=== PATIENT | male | born 1955 | race Caucasian/White ===

== ENCOUNTER 2020-09-13 10:40 | Observation (INO) | payer BC, OTHER ==
[~2020-09-13] VITALS: Ht 185 cm; Wt 88.0 kg
[~2020-09-13 10:40] MED LIST: ESOM40CA52 PO; LISI20TA26 PO; OXYC1TAB87 PO; SIMV40TA25 PO
[2020-09-13] MEDS ORDERED: ASPIRIN 81 MG CHEW (CHILDREN'S ASA) ONE (10:52)
[2020-09-13] MEDS ORDERED: NITROGLYCERIN 0.4 MG SL TABS BTL 25'S SL ONE (10:53)
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
[2020-09-13] MEDS ORDERED: NITROGLYCERIN 0.4 MG SL TABS BTL 25'S SL PRN (11:00)
[2020-09-13] MEDS ORDERED: ASPIRIN 81 MG CHEW (CHILDREN'S ASA) PO ONE (11:00)
--- NOTE | 2020-09-13 11:26 | Diagnostic Imaging Report ---
INDICATION: Chest pain COMPARISON: 10/13/2015. FINDINGS: Single frontal view of the chest demonstrates normal heart size and pulmonary vascularity. The lungs are well aerated and clear. No large pleural effusion or pneumothorax is seen. The visualized osseous structures show no acute abnormalities. IMPRESSION: 1. No acute cardiopulmonary process. Dictated by: Dictated on workstation # [id number]
[2020-09-13 11:27] LABS: BASOPHILS % (AUTO) 1 % (0-10); EOSINOPHILS # (AUTO) 0.1 10^3/uL (0.0-0.3); EOSINOPHILS % (AUTO) 1 % (0-10); HEMATOCRIT 38 % (40-54); LYMPHOCYTES # (AUTO) 1.6 10^3/uL (1.0-4.0); LYMPHOCYTES % (AUTO) 30 % (12-44); MEAN CORPUSCULAR HEMOGLOBIN 32 pg (25-34); MEAN CORPUSCULAR HGB CONC 34 g/dL (32-36); MEAN CORPUSCULAR VOLUME 96 fL (80-99); MEAN PLATELET VOLUME 9.9 fL (9.0-12.2); MONOCYTES # (AUTO) 0.7 10^3/uL (0.0-1.0); MONOCYTES % (AUTO) 13 % (0-12); NEUTROPHILS # (AUTO) 2.8 10^3/uL (1.8-7.8); NEUTROPHILS % (AUTO) 55 % (42-75); PLATELET COUNT 218 10^3/uL (130-400); WHITE BLOOD COUNT 5.1 10^3/uL (4.3-11.0)
[2020-09-13 11:29] LABS: ALBUMIN 4.2 GM/DL (3.2-4.5); CHLORIDE 105 MMOL/L (98-107); POTASSIUM 4.2 MMOL/L (3.6-5.0); SODIUM 140 MMOL/L (135-145)
[2020-09-13 11:30] LABS: CALCIUM 9.2 MG/DL (8.5-10.1)
[2020-09-13 11:31] LABS: GLUCOSE 100 MG/DL (70-105); TOTAL PROTEIN 7.3 GM/DL (6.4-8.2)
[2020-09-13 11:33] LABS: BILIRUBIN,TOTAL 0.6 MG/DL (0.1-1.0); CARBON DIOXIDE 22 MMOL/L (21-32)
[2020-09-13 11:35] LABS: ALKALINE PHOSPHATASE 45 U/L (40-136); CREATININE SERUM 1.06 MG/DL (0.60-1.30); GFR ESTIMATED > 60
[2020-09-13 11:36] LABS: BUN/CREATININE RATIO 13
[2020-09-13 11:38] LABS: ALANINE AMINOTRANSFERASE 26 U/L (0-55); MAGNESIUM 1.9 MG/DL (1.6-2.4)
[2020-09-13 11:40] LABS: BILIRUBIN,URINE NEGATIVE (NEGATIVE); CLARITY,URINE CLEAR; COLOR,URINE YELLOW; GLUCOSE, URINE (UA) NEGATIVE (NEGATIVE); KETONES,URINE NEGATIVE (NEGATIVE); LEUKOCYTE ESTERASE ,URINE NEGATIVE (NEGATIVE); NITRITE,URINE NEGATIVE (NEGATIVE); PH,URINE 5.5 (5-9); PROTEIN,URINE NEGATIVE (NEGATIVE)
[2020-09-13 11:42] LABS: FIBRIN DEGRADATION PRODUCTS <= 0.27 UG/ML (0.00-0.49); PARTIAL THROMBOPLASTIN TIME 29 SEC (24-35); PROTHROMBIN TIME PATIENT 13.7 SEC (12.2-14.7)
[2020-09-13] MEDS ORDERED: IOHEXOL 350 MG/ML 100 ML (OMNIPAQUE 350) VIAL IV ONE (11:45)
[2020-09-13] MEDS ORDERED: CATHETER FLUSH 10 ML SYR IV PRN ×2 (11:45→13:45)
[2020-09-13] MEDS ORDERED: NS IV 1000 ML 1,000 ML IV SCH (11:45)
[2020-09-13] MEDS ORDERED: NS 100 ML (IVPB) BAG IV ONE (11:45)
[2020-09-13] MEDS ORDERED: HOLD METFORMIN - RECEIVED CONTRAST 20 ML VIAL IV SCH (11:45)
[2020-09-13 11:53] LABS: AMPHETAMINE SCREEN, URINE NEGATIVE (NEGATIVE); BARBITURATE SCREEN URINE NEGATIVE (NEGATIVE); BENZODIAZEPINES SCREEN URINE NEGATIVE (NEGATIVE); CANNABINOID SCREEN, URINE NEGATIVE (NEGATIVE); COCAINE SCREEN URINE NEGATIVE (NEGATIVE); METHADONE STAT NEGATIVE (NEGATIVE); METHAMPHETAMINE SCREEN URINE S NEGATIVE (NEGATIVE); OPIATE SCREEN URINE NEGATIVE (NEGATIVE); OXYCODONE STAT NEGATIVE (NEGATIVE); PROPOXYPHENE STAT NEGATIVE (NEGATIVE); TRICYCLIC ANTIDEPRESSANTS SCRE NEGATIVE (NEGATIVE)
[2020-09-13 12:08] LABS: BACTERIA,URINE NEGATIVE /HPF; SQUAMOUS EPITHELIAL CELL,UR 0-2 /HPF; WBC,URINE RARE /HPF
--- NOTE | 2020-09-13 12:20 | Diagnostic Imaging Report ---
PROCEDURE: CT angiography of the head and CT angiography of the neck with and without contrast. TECHNIQUE: Contiguous noncontrast images were obtained from the skull base through the vertex. After intravenous contrast administration, helical CT angiography of the neck was performed. Source data was reformatted into 3D MIP projections. Delayed post contrast acquisition was also obtained. Auto Exposure Controls were utilized during the CT exam to meet ALARA standards for radiation dose reduction. INDICATION: Right-sided numbness. Concern for stroke. Comparison: None. FINDINGS: CTA Neck: The visualized portions of the aortic arch demonstrate no evidence of aneurysm or dissection. There is conventional branching pattern of the great vessels of the aorta. The brachiocephalic artery is normal in course and caliber. The right and left common carotid origins are unremarkable. The origin of the left subclavian artery is patent. The common carotid arteries and internal carotid arteries demonstrate a mildly tortuous course. There is a small amount of atherosclerotic plaque in the bilateral carotid bulbs and proximal internal carotid arteries without flow-limiting stenosis. No evidence of dissection in the carotid systems. The external carotid arteries are patent and unremarkable. The vertebral arteries are codominant. The origin of the right vertebral artery is seen and is unremarkable. The origin of the left vertebral artery is seen and is unremarkable. There is no focal stenosis seen within the neck. There is no dissection. The vertebral arteries are well visualized to up to the level of the basilar artery. The osseous structures of the cervical spine are unremarkable. Included views through the lung apices demonstrate no focal consolidation. CTA brain: The intracranial portions of the bilateral ICA have a normal appearance without stenosis or aneurysm. No stenosis is seen in the bilateral anterior, middle, and posterior cerebral arteries. No evidence of aneurysm the [place]. In the posterior circulation, both of the vertebral arteries demonstrate normal opacification. The vertebral arteries are codominant. Both the right and left PICA arteries are identified. There is redemonstration of the basilar artery. No evidence of aneurysm or focal stenosis in the basilar artery. The terminal branch vessels including the superior cerebellar arteries unremarkable. CT head: No large acute territorial ischemia, mass, or hemorrhage. Scattered decreased attenuation is seen in the periventricular and subcortical white matter. No midline shift or mass effect. The ventricles, cortical sulci, and basilar cisterns are patent and unremarkable. The calvarium is intact. Small mucous retention cysts are seen in the bilateral maxillary sinuses. The mastoid air cells are clear. IMPRESSION: 1. No stenosis or aneurysm in the [place]. 2. No stenosis or dissection the bilateral carotid and vertebral arteries. 3. No large acute territorial ischemia, mass, or hemorrhage. 4. Scattered areas of age-indeterminate microvascular disease in the periventricular and subcortical white matter. If indicated consider further evaluation with MRI brain. 5. Incidentally noted fenestrated basilar artery. Dictated by: Dictated on workstation # [id number]
[2020-09-13] MEDS ORDERED: ACETAMINOPHEN 650 MG SUPP (TYLENOL) PR PRN (13:45)
[2020-09-13] MEDS ORDERED: ACETAMINOPHEN 325 MG TABLET PO PRN ×3 (13:45→18:00)
[2020-09-13] MEDS ORDERED: APAP 325 MG/10.15 ML LIQ (TYLENOL) UDC NG PRN (13:45)
[2020-09-13 13:48] VITALS: BP 152/80
--- NOTE | 2020-09-13 14:30 | Occ Therapy Progress Note ---
Therapy Progress Note OT order received, chart reviewed. Will assess pt. in a.m. after MRI and continued testing to rule out final diagnosis, when pt. rested from full day in ER and when medically stable. Thank you for this referral. [id number] ELA BRITO OT Sep 13, 2020 14:30
[2020-09-13] MEDS: CATHETER FLUSH 10 ML SYR IV SCH ×2 (14:42→20:16)
[2020-09-13] MEDS: ENOXAPARIN 40 MG/0.4 ML (LOVENOX) SYR SC SCH (14:42)
--- NOTE | 2020-09-13 14:51 | Physical Therapy Progress Note ---
Therapy Progress Note Order for evaluation received, chart reviewed. Patient came from ER this morning, his MRI is scheduled for in the morning. Will hold for now and see after continued testing. MARIZA GARCIA PT Sep 13, 2020 14:51
[2020-09-13] MEDS ORDERED: IBUP-2473 PO (15:17)
[2020-09-13] MEDS ORDERED: LISI40TA9 PO (15:17)
[2020-09-13 15:40] VITALS: BP 123/72
[2020-09-13] MEDS ORDERED: ONDANSETRON 4 MG (ZOFRAN) ORAL DISSOLVE TAB PO PRN (18:00)
[2020-09-13] MEDS ORDERED: MELATONIN 3 MG TABLET PO PRN (18:00)
[2020-09-13] MEDS ORDERED: polyethylene glycoL POWDER 17 GM (MIRALAX) PACK PO PRN (18:00)
[2020-09-13] MEDS ORDERED: ANTACID SUSP 30 ML UDC (MYLANTA) PO PRN (18:00)
[2020-09-13] MEDS ORDERED: ONDANSETRON 4 MG/2 ML (SDV) Z0FRAN IV PRN (18:00)
[2020-09-13] MEDS ORDERED: MILK OF MAGNESIA 400 MG/5 ML 30 ML UDC PO PRN (18:00)
[2020-09-13] MEDS ORDERED: diphenhydrAMINE 25 MG TAB (BENADRYL) PO PRN (18:00)
[2020-09-13 19:48] VITALS: BP 123/72
[2020-09-13] MEDS: DOCUSATE SODIUM 100 MG (COLACE) CAP PO SCH (20:15)
[2020-09-13] MEDS: SENNOSIDES 8.6 MG (SENOKOT) TAB PO SCH (20:15)
[2020-09-13 23:48] VITALS: BP 120/66
[2020-09-14 04:18] VITALS: BP 122/76
[2020-09-14 05:20] LABS: BASOPHILS % (AUTO) 1 % (0-10); EOSINOPHILS # (AUTO) 0.1 10^3/uL (0.0-0.3); EOSINOPHILS % (AUTO) 2 % (0-10); HEMATOCRIT 37 % (40-54); HEMOGLOBIN 12.3 g/dL (13.3-17.7); LYMPHOCYTES # (AUTO) 1.3 10^3/uL (1.0-4.0); LYMPHOCYTES % (AUTO) 24 % (12-44); MEAN CORPUSCULAR HEMOGLOBIN 32 pg (25-34); MEAN CORPUSCULAR HGB CONC 33 g/dL (32-36); MEAN CORPUSCULAR VOLUME 96 fL (80-99); MONOCYTES # (AUTO) 0.6 10^3/uL (0.0-1.0); MONOCYTES % (AUTO) 10 % (0-12); NEUTROPHILS # (AUTO) 3.4 10^3/uL (1.8-7.8); NEUTROPHILS % (AUTO) 63 % (42-75); PLATELET COUNT 201 10^3/uL (130-400); WHITE BLOOD COUNT 5.4 10^3/uL (4.3-11.0)
[2020-09-14 05:39] LABS: CHLORIDE 106 MMOL/L (98-107); POTASSIUM 3.9 MMOL/L (3.6-5.0); SODIUM 138 MMOL/L (135-145)
[2020-09-14 05:40] LABS: CALCIUM 8.9 MG/DL (8.5-10.1)
[2020-09-14 05:41] LABS: GLUCOSE 106 MG/DL (70-105); TRIGLYCERIDES 102 MG/DL (<150); VLDL CHOLESTEROL 20 MG/DL (5-40)
[2020-09-14 05:42] LABS: CARBON DIOXIDE 21 MMOL/L (21-32)
[2020-09-14 05:44] LABS: CREATININE SERUM 0.86 MG/DL (0.60-1.30); GFR ESTIMATED > 60
[2020-09-14 05:46] LABS: BUN/CREATININE RATIO 15; CHOLESTEROL 167 MG/DL (< 200)
[2020-09-14 05:47] LABS: HDL CHOLESTEROL 57 MG/DL (40-60)
[2020-09-14] MEDS: CATHETER FLUSH 10 ML SYR IV SCH ×3 (06:10→19:58)
--- NOTE | 2020-09-14 08:15 | Consultation-Cardiology ---
HPI-Cardiology Cardiology Consultation: Date of Consultation 09/14/20 Time Seen by a Provider: 08:10 Date of Admission 09-13-20 Attending Physician Lynn Urbina MD Admitting Physician No,Local Physician Consulting Physician Tammie Domingo MD HPI: Chief Complaint: TIA vs CVA Mr. Weldon is a 65 yr old male admitted to 508 from the ED. He reports he was mowing his lawn yesterday when he developed right sided facial numbness, arm and leg numbness along with blurred vision. He reports the blurred vision lasted for approx 15 minutes. He reports feeling weak and dizzy. The facial numbness has resolved and the right leg numbness has resolved. He continues to c/o right arm/hand numbness. He states he was seen by Dr. Otto at [facility] approx 2 months ago and underwent cardiac cath which he states he did not have any interventions. He states he had a carotid u/s and echocardiogram as well. He reports he was told he has a leaky aortic valve. He reports he feels he has undiagnosed sleep apnea. He reports poor rest at night. He states he wakes up nearly every night with SOB and palpitations which gradually resolve. He reports chronic daytime fatigue. He has not had sleep studies. He denies any n/v/d. He reports he was advised to take an ASA, but he has not been taking it. He denies any LE swelling. He does not report any CP or SOB during yesterdays event. Review of Systems-Cardiology Review of Systems Constitutional: As described under HPI; No chills, No fever Eyes: As described under HPI Ears/Nose/Throat: No epistaxis, No recent hearing loss Respiratory: As described under HPI Cardiovascular: As described under HPI Gastrointestinal: No constipation, No diarrhea, No nausea, No vomiting Genitourinary: No dysuria, No hematuria Musculoskeletal: no symptoms reported Skin: No rash on exposed areas, No ulcerations on exposed areas Psychiatric/Neurological: As described under HPI; No anxiety, No depression, No seizure, No syncope Hematologic: No bleeding abnormalities All Other Systems Reviewed Negative Unless Noted: Yes IVW-Qhafxg-Uuasjo Hx Patient Social History Smoking Status: Never a Smoker Have you traveled recently?: No Alcohol Use?: Yes Pt feels they are or have been: No Immunizations Up To Date Tetanus Booster (TDap): Less than 5yrs Past Medical History PMH As described under Assessment. Family Medical History Family Medical History: He reports his mother had CAD with CABG in her 60's and his father had CAD with CABG in his 70's. He reports a brother who has a h/o TIA. Family History: 19 FATHER Dementia Cardiovascular disease Hypertension Asthma Respiratory disorder Alcoholism 19 MOTHER Diabetes mellitus Dementia Cardiovascular disease Hypertension G8 BROTHER Hypertension Drug abuse Allergies and Home Medications Allergies Coded Allergies: No Known Drug Allergies (Unverified , 10/13/15) Home Medications Aspirin 325 Mg Tablet., 325 MG PO DAILY Prescribed by: LYNN URBINA on 09/14/20 1601 Atorvastatin Calcium 80 Mg Tablet, 80 MG PO HS Prescribed by: LYNN URBINA on 09/14/20 1601 Esomeprazole Magnesium 40 Mg Capsule.dr, 40 MG PO DAILY, (Reported) Last Action: Reviewed Ibuprofen 200 Mg Tablet, 400-600 MG PO Q8H PRN for PAIN-MILD (1-4), (Reported) Last Action: Reviewed Lisinopril 40 Mg Tablet, 40 MG PO DAILY, (Reported) Last Action: Reviewed Patient Home Medication List Home Medication List Reviewed: Yes Physical Exam-Cardiology Physical Exam Vital Signs/I&O Capillary Refill : Less Than 3 Seconds Constitutional: AAO x 3, well-developed, well-nourished HEENT: PERRL, hearing is well preserved, oral hygience is good Neck: carotid bruit (bruit vs transmitted murmur) Respiratory: No accessory muscle use, No respiratory distress; chest expansion is symmetric, chest is bilaterally symmetric, lungs clear to auscultation Cardiovascular: regular rate-rhythm; No JVD; S1 and S2, systolic murmur Gastrointestinal: No tender; soft, round, audible bowel sounds Extremities: no lower extremity edema bilateral Neurologic/Psychiatric: grossly intact (moves all extremities) Skin: No rash on exposed areas, No ulcerations on exposed areas Data Review Labs Radiology NAME: JAMES WELDON MED REC#: [id number] PT STATUS: REG ER : 1955 PHYSICIAN: YUAN GILL MD ADMIT DATE: 09/13/20/ER Signed Date of Exam:09/13/20 CT ANGIO HEAD/NECK PROCEDURE: CT angiography of the head and CT angiography of the neck with and without contrast. TECHNIQUE: Contiguous noncontrast images were obtained from the skull base through the vertex. After intravenous contrast administration, helical CT angiography of the neck was performed. Source data was reformatted into 3D MIP projections. Delayed post contrast acquisition was also obtained. Auto Exposure Controls were utilized during the CT exam to meet ALARA standards for radiation dose reduction. INDICATION: Right-sided numbness. Concern for stroke. Comparison: None. FINDINGS: CTA Neck: The visualized portions of the aortic arch demonstrate no evidence of aneurysm or dissection. There is conventional branching pattern of the great vessels of the aorta. The brachiocephalic artery is normal in course and caliber. The right and left common carotid origins are unremarkable. The origin of the left subclavian artery is patent. The common carotid arteries and internal carotid arteries demonstrate a mildly tortuous course. There is a small amount of atherosclerotic plaque in the bilateral carotid bulbs and proximal internal carotid arteries without flow-limiting stenosis. No evidence of dissection in the carotid systems. The external carotid arteries are patent and unremarkable. The vertebral arteries are codominant. The origin of the right vertebral artery is seen and is unremarkable. The origin of the left vertebral artery is seen and is unremarkable. There is no focal stenosis seen within the neck. There is no dissection. The vertebral arteries are well visualized to up to the level of the basilar artery. The osseous structures of the cervical spine are unremarkable. Included views through the lung apices demonstrate no focal consolidation. CTA brain: The intracranial portions of the bilateral ICA have a normal appearance without stenosis or aneurysm. No stenosis is seen in the bilateral anterior, middle, and posterior cerebral arteries. No evidence of aneurysm the [place]. In the posterior circulation, both of the vertebral arteries demonstrate normal opacification. The vertebral arteries are codominant. Both the right and left PICA arteries are identified. There is redemonstration of the basilar artery. No evidence of aneurysm or focal stenosis in the basilar artery. The terminal branch vessels including the superior cerebellar arteries unremarkable. CT head: No large acute territorial ischemia, mass, or hemorrhage. Scattered decreased attenuation is seen in the periventricular and subcortical white matter. No midline shift or mass effect. The ventricles, cortical sulci, and basilar cisterns are patent and unremarkable. The calvarium is intact. Small mucous retention cysts are seen in the bilateral maxillary sinuses. The mastoid air cells are clear. IMPRESSION: 1. No stenosis or aneurysm in the [place]. 2. No stenosis or dissection the bilateral carotid and vertebral arteries. 3. No large acute territorial ischemia, mass, or hemorrhage. 4. Scattered areas of age-indeterminate microvascular disease in the periventricular and subcortical white matter. If indicated consider further evaluation with MRI brain. 5. Incidentally noted fenestrated basilar artery. Dictated by: Dictated on workstation # [id number] Dict: 09/13/20 1210 Trans: 09/13/20 1224 [facility] [id number] Interpreted by: CASSIE VALLEJO DO Electronically signed by: CASSIE VALLEJO DO 09/13/20 1224 ECG Impression ECG Initial ECG Rhythm: Normal Sinus A/P-Cardiology Assessment/Admission Diagnosis TIA vs CVA (transient right facial, arm, leg numbness) Reports recent cardiac cath in June at [facility] by Dr. Otto which her reports no coronary intervention Reports "aortic valve leakage" per echocardiogram at [facility] in June [address] Otto Palpitations of undetermined etiology HTN HLD Heavy ETOH usage (20-30 beers/night) Suspected sleep apnea Family h/o CAD (mother and father) Discussion and Recomendations TIA vs CVA - managment per medical services - MRI later today Request records from [facility] regarding recent cardiac work up Suspected sleep apnea - advised out pt sleep studies Palpitations of undetermined etiology - keep on tele - if no arrhythmia seen advise out pt Holter vs ILR (at this time he is not agreeable to either) Monitor lab and replace electrolytes as indicated Heavy ETOH abuse - monitor for DT's - management per medical services Continue current medication regimen Further recs will be based on his hospital course We would like to thank medical services for this consult Clinical Quality Measures Stroke: Date of last known well: Sep 13, 2020 Time of last known well: 09:15 Symptoms onset unknown: No AURORA MELTON Sep 14, 2020 08:15
[2020-09-14 08:31] VITALS: BP 134/83
[2020-09-14] MEDS: DOCUSATE SODIUM 100 MG (COLACE) CAP PO SCH ×2 (08:35→20:05)
[2020-09-14] MEDS: ASPIRIN E.C. 325 MG (ECOTRIN) TABLET PO SCH (08:35)
[2020-09-14] MEDS: SENNOSIDES 8.6 MG (SENOKOT) TAB PO SCH ×2 (08:35→20:05)
[2020-09-14] MEDS ORDERED: ASPIRIN 325 MG (5 GR) TABLET PO SCH (09:00)
[2020-09-14] MEDS ORDERED: ASPIRIN 300 MG (5 GR) SUPPOSITORY PR SCH (09:00)
--- NOTE | 2020-09-14 10:01 | Physical Therapy Progress Note ---
Therapy Progress Note Patient is up independent without difficulty. Spouse present. Both voice they do not have safety concerns. No PT indicated. 1 visit ([phone]) BEAU DRUMMOND PT Sep 14, 2020 10:01
--- NOTE | 2020-09-14 11:49 | Occ Therapy Progress Note ---
Therapy Progress Note Reviewed pt chart again after initial evaluation sent. Spoke with PT this date. Pt up in room independently. Pt. independently completing self care in room with spouse present. Screen complete for functional ADL skills assessment. No OT indicated at this time. OT will be happy to re-assess if pt's needs change. Thank you for this referral. [id number] ELA BRITO OT Sep 14, 2020 11:49
[2020-09-14 12:58] VITALS: BP 126/84
--- NOTE | 2020-09-14 13:41 | Speech Therapy Progress Note ---
Therapy Progress Note ST orders received. Patient screened this afternoon. Speech/cognitive are within normal limits. Patient does not require further speech services at this time. INES JO Sep 14, 2020 13:41
[2020-09-14] MEDS: ENOXAPARIN 40 MG/0.4 ML (LOVENOX) SYR SC SCH (14:00)
--- NOTE | 2020-09-14 14:08 | Diagnostic Imaging Report ---
PROCEDURE: MR imaging of the brain without contrast. TECHNIQUE: Multiplanar, multisequence MR imaging of the brain was performed without contrast. INDICATION: Right-sided numbness. Concern for stroke or TIA. COMPARISON: CTA head and neck on 09/13/2020. FINDINGS: A small focus of acute/subacute ischemia is seen in the lateral aspect of the left thalamus. No evidence of hemorrhage or mass. Focal and confluent T2 hyperintense signal is seen in the periventricular and subcortical white matter. The ventricles, cortical sulci, and basilar cisterns are symmetric and unremarkable. The sellar and suprasellar regions have a normal appearance. The brainstem and posterior fossa are unremarkable. Small amount of retained secretions are seen in the bilateral maxillary sinuses and left sphenoid sinus. The mastoid air cells demonstrate normal signal characteristics. The globes and orbits are symmetric and unremarkable. The scalp and calvarium have a normal appearance. IMPRESSION: 1. Small focus of acute/subacute ischemia involving the lateral aspect of the left thalamus. No associated hemorrhage or mass effect. 2. Chronic microvascular disease throughout the periventricular and subcortical white matter. Dictated by: Dictated on workstation # [id number]
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
[2020-09-14] MEDS ORDERED: ATOR80TA76 PO (16:01)
[2020-09-14] MEDS ORDERED: ASPI325T32 PO (16:01)
--- NOTE | 2020-09-14 16:17 | Discharge Summary ---
Discharge Summary Hospital Course Was the Problem List Reviewed?: Yes Problems/Dx: (1) Acute lacunar stroke Status: Acute (2) HTN (hypertension) Status: Chronic (3) HLD (hyperlipidemia) Status: Chronic (4) GERD (gastroesophageal reflux disease) Status: Chronic (5) Alcohol abuse Status: Chronic Hospital Course Date of Admission: Sep 13, 2020 at 13:00 Admission Diagnosis : Possible stroke Family Physician/Provider: Nasrin,Local Physician Date of Discharge: 09/14/20 Discharge Diagnosis: Acute lacunar stroke Hospital Course: Stefan Solano is a 65 year old male with PMH HTN, HLD, GERD, alcohol abuse, who presented with right sided numbness and was admitted with possible stroke. His initial CT scan was unrevealing. He had a CTA which showed mild carotid artery plaque. He underwent an MRI which showed an acute/subacute left lacunar infarction. He was started on ASA and Lipitor. His symptoms completely resolved by the time of discharge. Cardiology was consulted and assisted with his care. He was recommended to have a loop recorder placed to check for occult AFib but he refused. He plans to follow up with his Clerk Carrier, Dr. Otto. He should also follow up with his primary care doctor. He was encouraged to decrease his alcohol intake in the short term with a ocean transportation intermediary goal of complete cessation. He was discharged home in stable condition. Labs and Pending Lab Test: Laboratory Tests 09/14/20 05:00: White Blood Count 5.4, Red Blood Count 3.84L, Hemoglobin 12.3L, Hematocrit 37L, Mean Corpuscular Volume 96, Mean Corpuscular Hemoglobin 32, Mean Corpuscular Hemoglobin Concent 33, Red Cell Distribution Width 12.0, Platelet Count 201, Mean Platelet Volume 10.0, Immature Granulocyte % (Auto) 0, Neutrophils (%) (Auto) 63, Lymphocytes (%) (Auto) 24, Monocytes (%) (Auto) 10, Eosinophils (%) (Auto) 2, Basophils (%) (Auto) 1, Neutrophils # (Auto) 3.4, Lymphocytes # (Auto) 1.3, Monocytes # (Auto) 0.6, Eosinophils # (Auto) 0.1, Basophils # (Auto) 0.0, Immature Granulocyte # (Auto) 0.0, Sodium Level 138, Potassium Level 3.9, Chloride Level 106, Carbon Dioxide Level 21, Anion Gap 11, Blood Urea Nitrogen 13, Creatinine 0.86, Estimat Glomerular Filtration Rate > 60, BUN/Creatinine Ratio 15, Glucose Level 106H, Calcium Level 8.9, Troponin I < 0.028, Triglycerides Level 102, Cholesterol Level 167, LDL Cholesterol Direct 97, VLDL Cholesterol 20, HDL Cholesterol 57 Home Meds Active Aspirin EC (Aspirin) 325 Mg Tablet.dr 325 Mg PO DAILY 90 Days Atorvastatin Calcium 80 Mg Tablet 80 Mg PO HS 90 Days Reported Ibuprofen 200 Mg Tablet 400-600 Mg PO Q8H PRN Lisinopril 40 Mg Tablet 40 Mg PO DAILY Simvastatin 40 Mg Tablet 40 Mg PO DAILY Esomeprazole Magnesium 40 Mg Capsule.dr 40 Mg PO DAILY Assessment/Pt Instructions Take medications as prescribed. Begin taking Aspirin and Lipitor. Please discuss alcohol use with your primary care doctor to come up with a plan to discontinue use. Follow up with your Clerk Carrier. Return with worsening symptoms. Discharge Planning: <30 minutes discharge planning Discharge Instructions Discharge Diet: Low Sodium Diet Activity as Tolerated: Yes Consultations Cardiology Discharge Physical Examination Vital Signs Vital Signs Date Time Temp Pulse Resp B/P (MAP) Pulse Ox O2 Delivery O2 Flow Rate FiO2 09/14/20 12:58 36.7 52 18 126/84 (98) 98 Room Air General Appearance: No Apparent Distress, WD/WN HEENT: PERRL/EOMI, Pharynx Normal Respiratory: Lungs Clear, Normal Breath Sounds, No Respiratory Distress Cardiovascular: Regular Rate, Rhythm, No Edema, No Murmur Gastrointestinal: Normal Bowel Sounds, Non Tender, Soft Extremity: Normal Inspection, Non Tender, No Pedal Edema Skin: Normal Color, Warm/Dry Neurologic/Psychiatric: Alert, Oriented x3, No Motor/Sensory Deficits, Normal Mood/Affect, database administration manager II-XII Norm as Tested Allergies: Coded Allergies: No Known Drug Allergies (Unverified , 10/13/15) Discharge Summary Date of Admission Sep 13, 2020 at 13:00 Date of Discharge Discharge Date: Sep 14, 2020 Discharge Time: 16:11 Admission Diagnosis Acute lacunar stroke Consults/Procedures Consulations Cardiology Discharge Diagnosis (1) Acute lacunar stroke Status: Acute Clinical Quality Measures Stroke: Date of last known well: Sep 13, 2020 Time of last known well: 09:15 Symptoms onset unknown: No LYNN URBINA MD Sep 14, 2020 16:17
--- NOTE | 2020-09-14 19:00 | Consultation-Cardiology ---
HPI-Cardiology Cardiology Consultation: Date of Consultation 09/14/20 Time Seen by a Provider: 18:30 Date of Admission Attending Physician Clau Urbina MD Admitting Physician No,Local Physician Consulting Physician ERIN NYE MD, MA, FACP, FACC, [facility] [place], CCD[facility] HPI: Chief Complaint: TIA vs CVA Mr. Solano is a 65 yr old male admitted to 508 from the ED. He reports he was mowing his lawn yesterday when he developed right sided facial numbness, arm and leg numbness along with blurred vision. He reports the blurred vision lasted for approx 15 minutes. He reports feeling weak and dizzy. The facial numbness has resolved and the right leg numbness has resolved. He continues to c/o right arm/hand numbness. He states he was seen by Dr. Otto at [facility] approx 2 months ago and underwent cardiac cath which he states he did not have any interventions. He states he had a carotid u/s and echocardiogram as well. He reports he was told he has a leaky aortic valve. He reports he feels he has undiagnosed sleep apnea. He reports poor rest at night. He states he wakes up nearly every night with SOB and palpitations which gradually resolve. He reports chronic daytime fatigue. He has not had sleep studies. He denies any n/v/d. He reports he was advised to take an ASA, but he has not been taking it. He denies any LE swelling. He does not report any CP or SOB during yesterdays event. Review of Systems-Cardiology Review of Systems Constitutional: As described under HPI; No chills, No fever Eyes: As described under HPI Ears/Nose/Throat: No epistaxis, No recent hearing loss Respiratory: As described under HPI Cardiovascular: As described under HPI Gastrointestinal: No constipation, No diarrhea, No nausea, No vomiting Genitourinary: No dysuria, No hematuria Musculoskeletal: no symptoms reported Skin: No rash on exposed areas, No ulcerations on exposed areas Psychiatric/Neurological: As described under HPI; No anxiety, No depression, No seizure, No syncope Hematologic: No bleeding abnormalities All Other Systems Reviewed Negative Unless Noted: Yes [id number] Hx Patient Social History Smoking Status: Never a Smoker Have you traveled recently?: No Alcohol Use?: Yes Pt feels they are or have been: No Immunizations Up To Date Tetanus Booster (TDap): Less than 5yrs Past Medical History PMH As described under Assessment. Family Medical History Family Medical History: He reports his mother had CAD with CABG in her 60's and his father had CAD with CABG in his 70's. He reports a brother who has a h/o TIA. Family History: Alcoholism 19 FATHER Asthma 19 FATHER Cardiovascular disease 19 FATHER 19 MOTHER Dementia 19 FATHER 19 MOTHER Diabetes mellitus 19 MOTHER Drug abuse G8 BROTHER Hypertension 19 FATHER 19 MOTHER G8 BROTHER Respiratory disorder 19 FATHER Allergies and Home Medications Allergies Coded Allergies: No Known Drug Allergies (Unverified , 10/13/15) Home Medications Aspirin 325 Mg Tablet.dr, 325 MG PO DAILY Prescribed by: CLAU URBINA on 09/14/20 1601 Atorvastatin Calcium 80 Mg Tablet, 80 MG PO HS Prescribed by: CLAU URBINA on 09/14/20 1601 Esomeprazole Magnesium 40 Mg Capsule.dr, 40 MG PO DAILY, (Reported) Last Action: Reviewed Ibuprofen 200 Mg Tablet, 400-600 MG PO Q8H PRN for PAIN-MILD (1-4), (Reported) Last Action: Reviewed Lisinopril 40 Mg Tablet, 40 MG PO DAILY, (Reported) Last Action: Reviewed Simvastatin 40 Mg Tablet, 40 MG PO DAILY, (Reported) Last Action: Reviewed Patient Home Medication List Home Medication List Reviewed: Yes Physical Exam-Cardiology Physical Exam Vital Signs/I&O 09/14/20 09/14/20 09/14/20 09/14/20 07:00 08:00 08:31 12:58 Temp 36.5 36.7 Pulse 49 57 52 Resp 18 18 B/P (MAP) 134/83 (100) 126/84 (98) Pulse Ox 100 98 O2 Delivery Room Air Room Air Room Air 09/14/20 00:00 Intake Total 700 ml Balance 700 ml Capillary Refill : Less Than 3 Seconds Constitutional: AAO x 3, well-developed, well-nourished HEENT: PERRL, hearing is well preserved, oral hygience is good Neck: carotid bruit (bruit vs transmitted murmur) Respiratory: No accessory muscle use, No respiratory distress; chest expansion is symmetric, chest is bilaterally symmetric, lungs clear to auscultation Cardiovascular: regular rate-rhythm; No JVD; S1 and S2, systolic murmur Gastrointestinal: No tender; soft, round, audible bowel sounds Extremities: no lower extremity edema bilateral Neurologic/Psychiatric: grossly intact (moves all extremities) Skin: No rash on exposed areas, No ulcerations on exposed areas Data Review Labs Laboratory Tests 09/14/20 05:00: White Blood Count 5.4, Red Blood Count 3.84L, Hemoglobin 12.3L, Hematocrit 37L, Mean Corpuscular Volume 96, Mean Corpuscular Hemoglobin 32, Mean Corpuscular H emoglobin Concent 33, Red Cell Distribution Width 12.0, Platelet Count 201, Mean Platelet Volume 10.0, Immature Granulocyte % (Auto) 0, Neutrophils (%) (Auto) 63, Lymphocytes (%) (Auto) 24, Monocytes (%) (Auto) 10, Eosinophils (%) (Auto) 2, Basophils (%) (Auto) 1, Neutrophils # (Auto) 3.4, Lymphocytes # (Auto) 1.3, Monocytes # (Auto) 0.6, Eosinophils # (Auto) 0.1, Basophils # (Auto) 0.0, Immature Granulocyte # (Auto) 0.0, Sodium Level 138, Potassium Level 3.9, Chloride Level 106, Carbon Dioxide Level 21, Anion Gap 11, Blood Urea Nitrogen 13, Creatinine 0.86, Estimat Glomerular Filtration Rate > 60, BUN/Creatinine Ratio 15, Glucose Level 106H, Calcium Level 8.9, Troponin I < 0.028, Triglycerides Level 102, Cholesterol Level 167, LDL Cholesterol Direct 97, VLDL Cholesterol 20, HDL Cholesterol 57 A/P-Cardiology Assessment/Admission Diagnosis Cryptogenic stroke. CVA confirmed on MRI of 09/14/20: small focus of acute/subacute ischemia involving the lateral aspect of the left thalamus. No associated hemorrhage or mass effect. Reports recent cardiac cath in June at [facility] by Dr. Otto that did not lead to any coronary intervention Echo on 09/14/20: LVEF 55-60%, mild , PASP 35-40% Palpitations of undetermined etiology HTN HLD Heavy ETOH usage (20-30 beers/night) Suspected sleep apnea Family h/o CAD (mother and father) Discussion and Recomendations We recommend ILR implantation to eval for PAF as the source of his cryptogenic stroke. I had a long and detailed discussion with him and his . Questions answered. He agrees. Plan for tomorrow CVA - management per medical services - MRI later today Request records from [facility] regarding recent cardiac work up Suspected sleep apnea - advised out pt sleep studies Monitor lab and replace electrolytes as indicated Heavy ETOH abuse - monitor for DT's - management per medical services Further recs will be based on his hospital course We would like to thank Medical services for this consult Clinical Quality Measures Stroke: Date of last known well: Sep 13, 2020 Time of last known well: 09:15 Symptoms onset unknown: No ERIN NYE MD FACP FACC CCDS Sep 14, 2020 19:00
[2020-09-14 20:00] VITALS: BP 117/54
[2020-09-15] VITALS: BP 117/54
[2020-09-15] MEDS: CATHETER FLUSH 10 ML SYR IV SCH (03:51)
[2020-09-15 03:58] VITALS: BP 117/54
[2020-09-15] MEDS ORDERED: LIDOCAINE 1% INJ 20 ML 20 ML VIAL ONE (07:28)
[2020-09-15] MEDS ORDERED: LIDOCAINE 1% INJ 20 ML 20 ML VIAL INJ ONE (07:45)
[2020-09-15 08:00] VITALS: BP 132/85
[2020-09-15] MEDS: SENNOSIDES 8.6 MG (SENOKOT) TAB PO SCH (09:04)
[2020-09-15] MEDS: DOCUSATE SODIUM 100 MG (COLACE) CAP PO SCH (09:04)
--- NOTE | 2020-09-15 09:10 | Progress Note - Cardiology ---
Cardiology SOAP Progress Note Subjective: No cp or palp or syncope or shortness of breath No n/v/d Objective: I&O/Vital Signs 09/15/20 09/15/20 09/15/20 00:00 03:58 08:00 Temp 35.7 36.2 36.8 Pulse 56 57 58 Resp 16 20 16 B/P (MAP) 117/54 (75) 117/54 (75) 132/85 (101) Pulse Ox 100 100 100 O2 Delivery Room Air Room Air Room Air 09/14/20 23:59 Intake Total 1950 ml Balance 1950 ml Weight (Pounds): 225 Weight (Ounces): 0.0 Weight (Calculated Kilograms): 102.157393 Constitutional: AAO x 3, well-developed, well-nourished Respiratory: No accessory muscle use, No respiratory distress; chest expansion is symmetric, chest is bilaterally symmetric, lungs clear to auscultation Cardiovascular: regular rate-rhythm; No JVD; S1 and S2, systolic murmur Gastrointestional: No tender; soft, round, audible bowel sounds Extremities: no lower extremity edema bilateral Neurologic/Psychiatric: oriented x 3, other (moves all limbs equally) Skin: No rash on exposed areas, No ulcerations on exposed areas A/P: Assessment: Cryptogenic stroke. CVA confirmed on MRI of 09/14/20: small focus of acute/subacute ischemia involving the lateral aspect of the left thalamus. No associated hemorrhage or mass effect. Reports recent cardiac cath in June at [facility] by Dr. Otto that did not lead to any coronary intervention Echo on 09/14/20: LVEF 55-60%, mild , PASP 35-40% Palpitations of undetermined etiology HTN HLD Heavy ETOH usage (20-30 beers/night) Suspected sleep apnea Family h/o CAD (mother and father) Plan: ILR placed after having obtained an informed consent. ILR to monitor for PAF Management of CVA is by Dr Falcon Outpt cardiac f/u advised Clinical Quality Measures Stroke: Date of last known well: Sep 13, 2020 Time of last known well: 09:15 Symptoms onset unknown: No ERIN NYE MD FACP FAC CCDS Sep 15, 2020 09:10
[2020-09-15] MEDS: ASPIRIN E.C. 325 MG (ECOTRIN) TABLET PO SCH (09:21)
--- NOTE | 2020-09-15 14:40 | OPERATIVE REPORT ---
DATE OF SERVICE: 09/15/2020 PREOPERATIVE DIAGNOSIS: Cryptogenic stroke. POSTOPERATIVE DIAGNOSIS: Cryptogenic stroke. PROCEDURE: Implantable loop recorder implantation. INDICATIONS: The patient is a 65-year-old gentleman who had a TIA, proven on MRI scan, and the etiology is unclear. He does report a history of infrequent palpitations. Implantable loop recorder implantation was carried out for evaluation for paroxysmal atrial fibrillation. Informed consent was obtained. DESCRIPTION OF PROCEDURE: [facility] The left prepectoral area was prepared and draped in the usual sterile fashion. Lidocaine 1% was used for local anesthesia. Tools provided with the [employer] Reveal LINQ device were used to place the device and a subcutaneous pocket anterior to the left fourth intercostal space. The wound edges were closed using Dermabond and Steri-Strips. He tolerated the procedure well. The serial number of the device is [id number]. Job ID: [id number] DocumentID: [id number] Dictated Date: 09/15/2020 09:07:43 Cow Trimmer Date: 09/15/2020 14:37:45 Dictated By: ERIN NYE MD, MA, FACP, FACC,
== END 2020-09-15 10:40 | disposition home or self-care (01) ==
LOC: EDUNIT# 10:41 → ER 10:42 → CSD 13:00
PROVIDERS: ADMIT Internal Medicine; ATTEND Internal Medicine
DX: I63.81 Other cerebral infarction due to occlusion or stenosis of small artery (principal); G45.9 Transient cerebral ischemic attack, unspecified; I63.9 Cerebral infarction, unspecified; I10 Essential (primary) hypertension; I35.1 Nonrheumatic aortic (valve) insufficiency; E78.5 Hyperlipidemia, unspecified; K21.9 Gastro-esophageal reflux disease without esophagitis; F10.10 Alcohol abuse, uncomplicated; M19.90 Unspecified osteoarthritis, unspecified site; Z79.891 Long term (current) use of opiate analgesic; Z79.899 Other long term (current) drug therapy; Z83.3 Family history of diabetes mellitus; Z82.49 Family history of ischemic heart disease and other diseases of the circulatory system; Z83.6 Family history of other diseases of the respiratory system
CPT/HCPCS: 33285; 70496; 70498; 70551; 71045; 80048; 80053; 80061; 80306; 81000; 83735; 83874; 84484 ×2; 85025 ×2; 85379; 85610; 85730; 93005; 93041; 93306; 94664; 99284; C1764; 36415